=== PATIENT | female | born 1935 | race African-American/Black ===

== ENCOUNTER 2017-07-27 09:38 | Emergency (ER) | payer MEDICARE ==
[2016-01-09 15:09] VITALS: BMI 33.1
[~2017-07-27 09:38] MED LIST: DYAZIDE 37.5/251 CAP PO; MIRALAX17 GM PO; ZOCOR80 MG PO
[2017-07-27 10:55] LABS: BASOPHILS 0.2 % (0-2); EOSINOPHILS 1.9 % (0-7); HEMATOCRIT 41.9 % (36.0-48.0); HEMOGLOBIN 13.9 g/dL (12-16); IMMATURE GRANULOCYTES 0.2 % (0-5); LYMPHOCYTES 14.9 % (15-50); MCH 30.8 pg (26.0-34.0); MCHC 33.2 g/dL (31.0-37.0); MCV 92.9 fL (80.0-100.0); MEAN PLATELET VOLUME 10.9 fL (7.4-10.4); MONOCYTES 8.9 % (2-11); NEUTROPHILS 73.9 % (40-80); RBC 4.51 10x6/uL (4.00-5.40); RDW 13.4 % (11.5-14.5); WBC 4.3 10x3/uL (4.8-10.8)
[2017-07-27 11:02] LABS: PLATELET COUNT 103 10x3/uL (130-400)
[2017-07-27 11:09] LABS: ALBUMIN 3.2 g/dL (3.4-5.0); ALKALINE PHOSPHATASE 67 U/L (46-116); ALT (SGPT) 21 U/L (10-68); BILIRUBIN - TOTAL 0.53 mg/dL (0.2-1.3); CALC OSMOLALITY 271 mosm/kg (275-300); CALCIUM 8.5 mg/dL (8.5-10.1); CARBON DIOXIDE 26.2 mmol/L (21.0-32.0); CHLORIDE - SERUM 104 mmol/L (98-107); CREATININE - SERUM 1.1 mg/dL (0.6-1.3); GLUCOSE 98 mg/dL (74-106); PROTEIN - SERUM 6.6 g/dL (6.4-8.2); SODIUM 137 mmol/L (136-145); UREA NITROGEN 8 mg/dL (7-18); eGFR NON AFRICAN AMERICAN 50 mL/min (90-120)
[2017-07-27 11:15] LABS: TROPONIN-I < 0.017 ng/mL (0.000-0.060)
== END 2017-07-27 12:12 | disposition home or self-care (01) ==
LOC: D.ER 09:38
PROVIDERS: Nurse Practitioner Family
DX: J11.1 Influenza due to unidentified influenza virus with other respiratory manifestations (principal); J01.90 Acute sinusitis, unspecified; K21.9 Gastro-esophageal reflux disease without esophagitis; I10 Essential (primary) hypertension

== ENCOUNTER 2018-05-03 09:39 | Emergency (ER) | payer MEDICARE ==
[~2018-05-03] VITALS: Ht 167.6 cm; Wt 100.0 kg
[2018-05-03 09:52] VITALS: Ht 167.6 cm; Wt 100.0 kg
[2018-05-03 10:19] LABS: BASOPHILS 0.7 % (0-2); EOSINOPHILS 4.1 % (0-7); HEMATOCRIT 43.4 % (36.0-48.0); HEMOGLOBIN 14.5 g/dL (12-16); MCHC 33.4 g/dL (31.0-37.0); MCV 92.7 fL (80.0-100.0); MEAN PLATELET VOLUME 10.7 fL (7.4-10.4); MONOCYTES 10.1 % (2-11); NEUTROPHILS 57.1 % (40-80); RBC 4.68 10x6/uL (4.00-5.40); RDW 13.4 % (11.5-14.5)
[2018-05-03 10:31] LABS: PLATELET COUNT 136 10x3/uL (130-400)
[2018-05-03 10:36] LABS: ALBUMIN 3.2 g/dL (3.4-5.0); ANION GAP 10.1 mmol/L (8-16); BILIRUBIN - TOTAL 0.46 mg/dL (0.2-1.3); CALCIUM 8.9 mg/dL (8.5-10.1); CARBON DIOXIDE 28.2 mmol/L (21.0-32.0); CREATININE - SERUM 0.9 mg/dL (0.6-1.3); POTASSIUM - SERUM 4.3 mmol/L (3.5-5.1); PROTEIN - SERUM 6.6 g/dL (6.4-8.2)
[2018-05-03] MEDS ORDERED: NORCO 7.5/325 T1 TA1 PO (11:30)
[2018-05-03 11:40] VITALS: BP 152/89
== END 2018-05-03 11:41 | disposition home or self-care (01) ==
LOC: D.ER 09:39
PROVIDERS: Family Medicine
DX: S29.011A Strain of muscle and tendon of front wall of thorax, initial encounter (principal); X50.0XXA Overexertion from strenuous movement or load, initial encounter; Y93.89 Activity, other specified; Y92.019 Unspecified place in single-family (private) house as the place of occurrence of the external cause; D72.819 Decreased white blood cell count, unspecified; I10 Essential (primary) hypertension